=== PATIENT | female | born 1990 | race Caucasian/White ===

== ENCOUNTER 2019-09-20 04:35 | Outpatient (CLI) | payer OTHER, SELFPAY ==
[2019-09-20 11:05] LABS: Kit/Specimen SENT
[2019-09-20 11:25] LABS: Abs Immature Grans 0.01 k/cumm (0.0-0.09); Absolute Basophil Count 0.01 k/cumm (0.0-0.2); Absolute Eosinophil Count 0.07 k/cumm (0.0-0.7); Absolute Lymphocyte Count 2.11 k/cumm (1.2-3.4); Absolute Monocyte Count 0.42 k/cumm (0.11-0.7); Absolute Neutrophil Count 6.17 k/cumm (1.2-6.7); Basophils % 0.1; Eosinophils % 0.8; HCT 36.2 % (36.0-46.0); HGB 12.3 g/dL (12.0-15.5); Immature Grans % 0.1 %; Mean Corpuscular Volume 85.4 fL (80-95); Monocytes % 4.8; Neutrophils % 70.2; Platelet Count 274 x1000/uL (130-400); RBC 4.24 m/cumm (4.00-5.20); RBC Distribution Width 12.7 % (11.7-14.6); White Blood Cell Count 8.79 k/cumm (4.4-10.8)
[2019-09-20 11:34] LABS: Glucose,1 Hr (Glucola) 101 mg/dL (80-140)
[2019-09-20 12:42] LABS: TSH (W/Ref FT4) 1.19 uIU/mL (0.36-3.74)
[2019-09-21 11:09] LABS: Rubella IgG Ab (UVM) Positive (See Note); Varicella IgG Antibody Positive (See Note)
[2019-09-21 11:33] LABS: Hepatitis C Ab w Rflx HCV PCR Negative (Negative)
[2019-09-21 15:03] LABS: HIV-1/2 Ag & Ab Screen Negative (Negative)
[2019-09-21 15:04] LABS: Hepatitis B Surface Ag Negative (Negative)
[2019-09-22 11:33] LABS: Syphilis Total Ab w/Reflex Nonreactive (Nonreactive)
[2019-09-25 01:15] LABS: Specimen WB Whole Blood
[2019-09-26 17:59] LABS: Result Summary NEGATIVE; Specimen WB Whole Blood
== END 2019-09-20 04:55 ==
PROVIDERS: PCP Nurse Practitioner; Visit Provider Advanced Practice Midwife
DX: Z34.91 Encounter for supervision of normal pregnancy, unspecified, first trimester (principal); Z3A.15 15 weeks gestation of pregnancy; Z36.89 Encounter for other specified antenatal screening; Z82.79 Family history of other congenital malformations, deformations and chromosomal abnormalities
CPT/HCPCS: 36415; 81329; 82950; 86787; 86803; 86850; 86900; 86901; 87340; 87389; 81220; 84443; 85025; 86762; 86780

== ENCOUNTER 2019-09-20 10:30 | Outpatient (REF) | payer OTHER, SELFPAY ==
--- NOTE | 2019-09-20 10:00 | PAPFT_PTH ---
PATIENT: Chasidy Andrade LOC: [facility] U#:[id number] AGE/SX: 29/F ROOM: RE09/20/[address]: Elida Moody CNM : 1990 BED: DIS: 09/20/2019 SPEC #: [id number] RECD: 09/20/19 12:47 STATUS: CORDELL REQ #: [id number] DIA: 09/20/19 10:[address]: Elida Moody DEPT: [facility] Cytology RECD BY: Leilani Stearns ENTERED: 09/20/19 12:48 SP TYPE: PAPFT OTHR DR: Joselyn Araujo APRN Tissues: 1 - CX/ENDOCX FOR PAP SMEARS Procedures: PAP THIN PREP/UVM Screening HPV DNA PROBE Comments: [id number]
[2019-09-20 12:57] LABS: *AMPHETAMINES SCREEN URINE Negative (Negative); *BARBITURATES SCREEN URINE Negative (Negative); *BENZODIAZEPINES SCREEN URINE Negative (Negative); Cannabinoids THC Negative (Negative); Cocaine Screen,Urine Negative (Negative); METHADONE URINE SCREEN Negative (Negative); OPIATES URINE SCREEN Negative (Negative); Tricyclic Antidepressants Negative (Negative)
[2019-09-21 14:13] LABS: Chlamydia Result Negative (Negative); GC Result Negative (Negative)
[2019-09-26 12:28] LABS: Buprenorphine Negative; Norbuprenorphine Negative
== END 2019-09-20 10:50 ==
LOC: LBN 10:30
PROVIDERS: PCP Nurse Practitioner; Visit Provider Advanced Practice Midwife
DX: Z34.91 Encounter for supervision of normal pregnancy, unspecified, first trimester (principal); Z3A.15 15 weeks gestation of pregnancy; Z11.3 Encounter for screening for infections with a predominantly sexual mode of transmission; Z12.4 Encounter for screening for malignant neoplasm of cervix; Z11.51 Encounter for screening for human papillomavirus (HPV)
CPT/HCPCS: 80307; 87491; 87591; 88142; 87086; 87480; 87510; 87624; 87660

== ENCOUNTER 2019-10-11 00:21 | Outpatient (CLI) | payer OTHER, SELFPAY ==
--- NOTE | 2019-10-11 06:45 | DI.US_ITS ---
EXAM: US OB 2-3 TRIMESTER CLINICAL HISTORY: 18 wk anaotmy survey, Z3A.15. TECHNIQUE: Transabdominal obstetrical ultrasound performed. COMPARISON: No exams were available for comparison FINDINGS: Transabdominal obstetrical ultrasound performed. FINDINGS: Number of fetuses: One. position: Vertex. Placental grade: 1 Placental location: Posterior. No evidence of previa. BIOMETRIC DATA: BPD: 44 millimeters, 19+ 2 weeks HC: 166 millimeters, 19+ 2 weeks AC: 127 millimeters, 18+ 2 weeks FL: 27 millimeters, 18+ 1 weeks Cisterna Magna: 3.2 millimeters Cerebellum: 1.8 cm EFW: 235 grms 82 percentile Composite Age: 18+ 5 weeks EDC by US: 08 March 2020 Heart Rate: 171BPM Amniotic fluid: Amount of fluid is within normal limits. ANATOMICAL SURVEY: Four-chambered heart: Unremarkable. LVOT: Unremarkable. RVOT: Unremarkable. Left-sided stomach: Unremarkable. urinary bladder: Unremarkable. Bilateral kidneys: Unremarkable. Three-vessel cord: Unremarkable. Cord insertion: Unremarkable. Umbilical artery velocity: Unremarkable. Posterior fossa:Unremarkable. ventricles: Unremarkable. nose: Unremarkable. lips: Unremarkable. palate: Unremarkable. spine: Unremarkable. Two arms and two legs: Unremarkable. IMPRESSION: 1. Single live intrauterine gestation as above. 2. Normal anatomic survey. DATA REPOSITORY:
== END 2019-10-11 00:41 ==
PROVIDERS: Visit Provider Advanced Practice Midwife
DX: Z34.92 Encounter for supervision of normal pregnancy, unspecified, second trimester (principal); Z3A.18 18 weeks gestation of pregnancy
CPT/HCPCS: 76805

== ENCOUNTER 2019-12-07 04:03 | Outpatient (CLI) | payer OTHER, SELFPAY ==
--- NOTE | 2019-12-07 07:53 | DI.US_ITS ---
APPROVED REPORT EXAM: Comprehensive 2D, Doppler, and color-flow Echocardiogram Patient Location: Out-Patient Commissioned Police Officer: Iza Fong RDCS (AE) Indications: Murmur Other Information Study Quality: Good Conclusion Normal left ventricular wall thickness and chamber size. Estimated ejection fraction is 60%. There are no segmental wall motion abnormalities Normal right ventricular size and systolic function. Normal estimated right ventricular systolic pre ssure Normal left atrial size. Normal right atrial size. There are no structural valvular abnormalities or hemodynamically significant valvular abnormalities Wall motion Left Ventricle The left ventricle is normal size. The left ventricular systolic function is normal. The left ventric ular ejection fraction is within the normal range. There is normal left ventricular wall thickness. T here is normal LV segmental wall motion. There is no ventricular septal defect visualized. LVEF is 60 %. Right Ventricle The right ventricle is normal size. The right ventricular systolic function is normal. The RVSP is 23 .8 mmHg. Atria The left atrium size is normal. The right atrium size is normal. The interatrial septum is intact wit h no evidence for an atrial septal defect. Aortic Valve Aortic valve is trileaflet. There is no aortic valvular stenosis. No aortic regurgitation is present. Mitral Valve The mitral valve is normal in structure. No evidence of mitral valve stenosis. Trace mitral regurgita tion. Tricuspid Valve The tricuspid valve is normal in structure. There is no tricuspid valve stenosis. Trace tricuspid reg urgitation. Pulmonic Valve The pulmonary valve is normal in structure. There is no pulmonic valvular stenosis. Trace to mild pul alondra regurgitation. Great Vessels The aortic root is normal in size. The ascending aorta is normal in size. Aortic arch is normal in ca liber. IVC is normal in size and collapses >50% with inspiration. Pericardium There is no pericardial effusion. 2D Dimensions IVSD d PLAX 0.80 cm F: 0.6-1.0 LV Vol A2C d MOD 108.2 mL LVPW d PLAX 0.84 cm F: 0.6 - 1.0 LV Vol A4C d MOD 89.8 mL LVID d PLAX 5.33 cm F: 3.8 - 5.2 LA vol/ BSA A2C s A-L 29.5 mL/m2 LVDs 3.45 cm F: 2.2 - 3.5 LA vol/ BSA A4C s A-L 21.3 mL/m2 Ao Root d 2.66 cm F: 2.7 - 3.3 LA Vol/ BSA Biplane s A-L 26.0 mL/m2 RA Area A4C 13.23 cm2 LA Area A4C s MOD 16.32 cm2 RA Vol/ BSA A4C s A-L 15.8 mL/m2 LA Area A2C s MOD 19.91 cm2 Ao Asc Diam d 2.90 cm F: 2.3 - 3.1 LV EF A4C MOD 60.4 % LV EF Teichholz 63.0 % LV EF A2C MOD 58.0 % LVEF (Merchant's) 58.28 % F: 54 - 74 LV EF Biplane MOD 58.3 % LV Volume 74.81 mL F: 46 - 106 SV 58.08 mL LV Volume Index 37.59 mL/m2 F: 29 - 61 SV Index 29.12 mL/m2 LV Vol Biplane MOD 99.7 mL FS 34.40 % M-Mode TAPSE 2.54 cm (M/F) >1.7 LV Diastology MV E' medial 0.115 (>0.07 m/s) E/A Ratio 1.3 LV E/e MED 8.20 (<14) MV E Vmax 0.94 (0.4-1.3 m/s) MV E' lateral 0.166 (>0.1 m/s) MV A Vmax 0.70 (0.4-1.3 m/s) LV E/e LAT 5.65 (<14) MV E/A Ratio 1.32 MV E/E' medial 8.21 MV E/E' lateral 5.67 Aortic Valve LVOT Area 3.65 cm2 AoV Area Vmax 2.77 cm2 LVOT Vmax 1.14 m/s AoV Area/ BSA (Vmax) 1.39 cm2/m2 LVOT Mean Devon. 0.73 m/s ERNESTO Mean Devon. 2.52 cm2 LVOT Peak Grad 5.2 mmHg ERNESTO Mean Devon. Index 1.26 cm2/m2 LVOT Mean Grad 2.5 mmHg LVOT VTI 0.228 m LVOT Diam s 2.15 cm AoV Vmax 1.50 m/s Velocity Ratio 0.76 AoV Mean Devon. 1.05 m/s AoV Peak Grad 9.0 mmHg LVOT SV 83.04 mL AoV Mean Grad 4.9 mmHg AoV VTI 0.262 m AoV Area VTI 3.17 cm2 AoV Area/ BSA (VTI) 1.59 cm/m2 Mitral Valve MV DT 236 (160-240 msec) MV PHT 68 msec MV Area PHT 3.21 cm2 Pulmonary Valve PV Vmax 1.20 (0.5-1.5 m/s) RVOT Peak Gr. 3.66 mmHg PV Peak Grad 5.7 mmHg RVOT Mean Gr. 1.80 mmHg PV Mean Grad 3.1 mmHg RVOT VTI 0.190 m PV VTI 0.208 m RVOT Vmax 0.96 m/s Tricuspid Valve TR Peak Grad 20.8 mmHg TR Vmax 2.28 m/s RA Pressure 3.00 mmHg RVSP (TR) 23.8 mmHg
== END 2019-12-07 04:23 ==
PROVIDERS: Visit Provider Advanced Practice Midwife
DX: O26.92 Pregnancy related conditions, unspecified, second trimester (principal); R01.1 Cardiac murmur, unspecified
CPT/HCPCS: 93306

== ENCOUNTER 2019-12-13 03:08 | Outpatient (CLI) | payer OTHER, SELFPAY ==
[2019-12-13 11:18] LABS: HCT 33.6 % (36.0-46.0); HGB 10.8 g/dL (11.2-15.7); MCH 28.6 pg (27.0-33.0); MCHC 32.1 % (32.0-36.0); MCV 88.9 fL (80-95); MPV 10.2 fL (8.0-11.0); Platelet Count 322 10^3/uL (130-400); RBC 3.78 10^6/uL (3.93-5.22); RDW 12.9 % (11.7-14.6); RDW-SD 42.1 fL; WBC 12.18 10^3/uL (4.4-10.8)
[2019-12-13 11:23] LABS: Glucose,1 Hr (Glucola) 106 mg/dL (80-140)
== END 2019-12-13 03:28 ==
PROVIDERS: Visit Provider Advanced Practice Midwife
DX: Z34.90 Encounter for supervision of normal pregnancy, unspecified, unspecified trimester (principal)
CPT/HCPCS: 36415; 82950; 85027

== ENCOUNTER 2020-02-12 17:41 | Outpatient (REF) | payer OTHER, SELFPAY ==
[2020-02-12 17:57] LABS: *AMPHETAMINES SCREEN URINE Negative (Negative); *BARBITURATES SCREEN URINE Negative (Negative); *BENZODIAZEPINES SCREEN URINE Negative (Negative); Cannabinoids THC Negative (Negative); Cocaine Screen,Urine Negative (Negative); METHADONE URINE SCREEN Negative (Negative); OPIATES URINE SCREEN Negative (Negative)
[2020-02-12 18:04] LABS: Tricyclic Antidepressants Negative (Negative)
[2020-02-19 15:26] LABS: Buprenorphine Negative
== END 2020-02-12 18:01 ==
LOC: LBN 17:41
PROVIDERS: PCP Advanced Practice Midwife; Visit Provider Advanced Practice Midwife
DX: Z34.93 Encounter for supervision of normal pregnancy, unspecified, third trimester (principal); Z3A.36 36 weeks gestation of pregnancy; Z36.85 Encounter for antenatal screening for Streptococcus B
CPT/HCPCS: 80307; 87081

== ENCOUNTER 2020-03-10 14:35 | Outpatient (CLI) | payer OTHER, SELFPAY ==
[2020-03-10 15:02] VITALS: BP 132/87; PULSE 81; RESP 16; TEMP 36.4
[2020-03-10 15:05] VITALS: BP 132/87; PULSE 81; TEMP 36.4
[2020-03-10 16:07] VITALS: BP 131/81; PULSE 83
[2020-03-10 16:08] VITALS: BP 131/81; PULSE 83; TEMP 36.7
[2020-03-10 17:04] LABS: COMMENT (LAB VIEW ONLY) 24.28 mg/dL; PROTEIN < 6.0 mg/dL
--- NOTE | 2020-03-11 11:37 | W.OBNST ---
Date of service: 03/10/20 Time of Service: 18:30 NST Evaluation Reason for NST Reasons for Nonstress Test: GESTATIONAL HYPERTENSION Gestational Age Gestational Age in Weeks and Days: 40 Weeks and 2Days Test and Monitor Explained Test/Monitor Explained: Test Explained, Monitor Explained and Patient Verbalized Understanding Vital Signs Blood Pressure: 131/81 Pulse: 83 Temperature: 98.1 F NST Information Date on Monitor: 03/10/20 Time on Monitor: 14:50 Date off Monitor: 03/10/20 NST Interventions: PO Hydration and Other NST Evaluation Patient States Movement: Present Variability: Moderate 6-25 bpm Accelerations: 15x15 Decelerations: None NST Results: Reactive Note NST Note Note: B.P. 130s/80s during NST. neg edema or symptoms of preeclampsia. The fetus was very active and baseline FHTs difficult to assess so a prolonged monitor tracing was obtained. The baseline came down to 130s. Urine sample was sent for protein/creatinene ratio. Chasidy was instructed to return home and I told her I would call her with he serum results. After she left, the RN called me and told me that the blood was never drawn by the lab and she was under the impression that it had been drawn, having assumed her care after her arrival at the Center. I attempted to call the patient to discuss this and I left a message on voicemail. NST Reviewed and Verified by: Tea Perez
[2020-03-11 11:42] VITALS: BP 131/81; PULSE 83; TEMP 36.7
[2020-03-11 15:57] VITALS: BP 110/61; PULSE 107
== END 2020-03-10 17:05 | disposition home or self-care (01) ==
LOC: LBO 14:35 → OBS 14:48
PROVIDERS: PCP Advanced Practice Midwife; Visit Provider Advanced Practice Midwife
DX: O26.893 Other specified pregnancy related conditions, third trimester (principal)
CPT/HCPCS: 59025; 80053; 85027; 82565; 84156; 84550

== ENCOUNTER 2020-03-11 12:46 | Outpatient (CLI) | payer OTHER, SELFPAY ==
[2020-03-11 13:25] LABS: HCT 32.7 % (36.0-46.0); HGB 10.6 g/dL (11.2-15.7); MCH 27.7 pg (27.0-33.0); MCHC 32.4 % (32.0-36.0); MCV 85.6 fL (80-95); MPV 10.8 fL (8.0-11.0); Platelet Count 300 10^3/uL (130-400); RBC 3.82 10^6/uL (3.93-5.22); RDW 14.6 % (11.7-14.6); RDW-SD 45.7 fL; WBC 9.21 10^3/uL (4.4-10.8)
[2020-03-11 13:43] LABS: ALT 11 U/L (14-59); AST 10 U/L (15-37); Albumin 2.4 g/dL (3.4-5.0); Alkaline Phosphatase 179 U/L (46-116); Anion Gap 8.6 mmol/L (3-11); BUN 8 mg/dL (7-18); Bilirubin, Total 0.6 mg/dL (0.2-1.0); CO2 22.4 mmol/L (21.0-32.0); CREATININE 0.54 mg/dL (0.55-1.02); Calcium 8.8 mg/dL (8.5-10.1); Chloride 105 mmol/L (98-107); Glucose 101 mg/dL (74-106); Potassium 3.9 mmol/L (3.5-5.1); Sodium 136 mmol/L (136-145); Total Protein 6.5 g/dL (6.4-8.2); Uric Acid 2.8 mg/dL (2.6-6.0)
== END 2020-03-11 13:21 | disposition home or self-care (01) ==
LOC: BCD 12:47
PROVIDERS: PCP Advanced Practice Midwife; Visit Provider Advanced Practice Midwife
DX: O16.3 Unspecified maternal hypertension, third trimester (principal)
CPT/HCPCS: 36415; 80053; 85027; 84550

== ENCOUNTER 2020-03-12 15:47 | Inpatient (IN) | payer OTHER, SELFPAY ==
[2020-03-12 16:41] VITALS: BP 134/80; PULSE 92
[2020-03-12 16:42] VITALS: TEMP 36.8
--- NOTE | 2020-03-12 17:09 | W.PM.OBHPL1 ---
Date of service: 03/12/20 Time of Service: 17:09 Assessment and Plan Assessment and plan (1) Post-dates : Status: Acute Assessment and plan: A: 29 yo @ 40+4 wks by first trimester ultrasound dating PROM meconium stained fluid confirmed, since 1514 today Category 1 tracing, latent phase/prodomal, contrx mild q 5-7 minutes GBS neg, Rh+, Rubella & Varicella Immune Low risk for SD or PPH outside of primipara status Took daily low dose ASA for risk of PIH d/t nulliparity and elevated BMI Normotensive and afebrile on admit to P: Admit to , COVID swab, T&S and CBC, expectant management at this time Will recommend induction of labor if spontaneous onset does not occur Dr. Magaña available for consult prn Qualifiers: Post-term type: 40-42 weeks gestation Qualified Code(s): O48.0 - Post-term OB-HPI Labor/Delivery History of Present Illness Reason for Visit: TERM R/O LABOR Chief Complaint: Suspected Rupture of Membranes , Associated Signs and Symptoms of Suspected ROM: Pt bent down to pick and shovel man her cat at 1514 today when a large gush of yellow tinged fluid began flowing from her vagina. No bleeding, no pain, trickling has continued since.. YAHAIRA Calculator Estimated Delivery Date Method Current Current Estimate 03/08/20 Ultrasound #1 40w 4d Other Estimates 03/15/20 LMP (Uncertain) 39w 4d History of Present Expected Delivery Route/Plan - CNM FOB/fiance - Nikko Gardner (has another child) BB yes to hema Ortiz Interested in post-placental Kaila insertion GBS neg. Would like to use the tub and nitrous. Specific Issues/Plan 1. Hx of cardiac valve issues as a child. Referred for echocardiography by Dr. Alonzo 1a.11/15/19 pt states her ins. co, wants it done in [facility]. pt declines thus will do @ [facility]. al 1b. 12/07/19 Echo @ [facility] all wnl. Reviewed w/ Dr. Miller w/o need for f/u.al 2. Desires [place], CF and SMA testing, drawn 09/20/19 2a. SMA & CF carrier screen negative 2b. [place] result is low risk x3 male 3. Has sister with mild spina bifida, offer single marker AFP @ 18 wk visit - neg. result 4. Had +BV making PAP sample bloody, may need repeat PAP at 18 wk visit after Rx'ed Flagyl 5. BMI 32, early glucola 101 6. Start low dose ASA @ 16 wks for nullip/elevated BMI 7. Large breasts - planning to breastfeed, LC consult done 01/28 Review of Systems All systems reviewed & are unremarkable except as noted in HPI and below Constitutional Constitutional: Reports system reviewed and no additional complaints, except as documented Respiratory Respiratory: Reports system reviewed and no additional complaints, except as documented Gastrointestinal Gastrointestinal: Reports system reviewed and no additional complaints, except as documented Genitourinary Genitourinary: Reports system reviewed and no additional complaints, except as documented Musculoskeletal Musculoskeletal: Reports system reviewed and no additional complaints, except as documented Integumentary/Breasts Skin/Breast: Reports system reviewed and no additional complaints, except as documented Psychiatric Psychiatric: Reports as per HPI [facility] Medical History (Updated 03/12/20 @ 17:17 by Brigid Moody) 15 weeks gestation of 36 weeks gestation of Abnormality of heart valve Amenorrhea Migraines Family History Maternal Grandmother Heart disease Father Hypertension Other Alcohol abuse Social History (Updated 08/30/19 @ 09:02 by Sharmin Lewis) Smoking/Tobacco Use Status: Former Tobacco Use Quit Date: 04/04/15 Tobacco: How many years used: 1 Smoking risk assessment performed?: Yes Alcohol Intake: former Drug use: Never Substance use type: does not use Adopted: No Caregiver/Support person: No Foster care: No Household members: spouse Housing: house Do you need help understanding health information?: Rarely current occupation: [employer] Sexually active: Yes Do you think of yourself as: straight/heterosexual Current gender identity: female Do you feel safe at home: Yes Do you feel safe in your relationship?: Yes Female Reproductive History Menstrual control method: pills History History 2 Para 0 Hx # Term Pregnancies 0 Multiple births 0 Hx # Pregnancies 0 Ectopic pregnancies 0 AB induced 1 Hx Number of Living Children 0 AB spontaneous 0 Meds Home Medications and Allergies Home Medications Medication Instructions Recorded Confirmed Type PNV 153-FA 400 mcg-om3 35 mg-dha 1 tab PO 08/21/19 03/05/20 History 25 mg-epa 5 mg-fish oil chew tablet aspirin 81 mg tablet,delayed 81 mg PO DAILY #90 tab 09/20/19 03/12/20 Rx release ferrous sulfate 325 mg (65 mg 325 mg PO DAILY #30 tab 12/31/19 03/12/20 Rx iron) tablet breast pump #1 ea 02/21/20 03/05/20 Rx Allergies Allergy/AdvReac Type Severity Reaction Status Date / Time cephalexin AdvReac Nausea Verified 03/10/20 14:21 Exam Physical Exam Vital signs: Temp 98.2 F 03/12/20 16:42 Vital Signs Reviewed: Yes Constitutional Constitutional: no acute distress, average body habitus and cooperative Detailed Labor and Delivery Exam Nolen Score: Cervical exam deferred on admission Amniotic Membrane Status: Ruptured Rupture Method: Spontaneous Amniotic Fluid: Meconium Pooling: Positive Nitrazine: Positive Ferning: Present Monitor Mode: External Contraction Frequency(min): q 5-7 minutes Contraction Duration(sec): 60-90 Contraction Intensity: Mild Fetus A Heart Rate Baseline: 140 Monitor Accelerations: 15 X 15 Monitor Decelerations: None Variability: Moderate (6-25 BPM) Presentation: Cephalic Categories: Category I Est. Weight: 7 lb 7.931 oz Est. Weight: 3400 gms Date of Membrane Rupture: 03/12/20 Time of Membrane Rupture: 15:15 Results Results Group Beta Strep: Negative Blood Type: A+ Rubella Status: Immune Varicella Immunity: Immune Risk Assessment Risk for Shoulder Dystocia Historical/Initial OB: POSITIVE FOR: Pre- BMI>30; NEGATIVE FOR: Pelvic Abnormality, Previous Shoulder Dystocia or Previous Macrosomia 40 Weeks: NEGATIVE FOR: EFW> 4500 gms, Maternal Weight Gain >40lb or Post Dates Increased Risk?: No Delivery Plan @ 36wks: spont labor, , no increased risk outside of primiparous status Delivery Plan @ 40 wks: same Risk for Pre-Eclampsia Daily Dose ASA Indicated: Yes Date Initiated/Initials: 09/20/19 JK Yes, if one or more: NEGATIVE FOR: Hx Pre-E/Gest HTN, Chronic HTN, Multiple Gestation, Pre-gestational DM, Renal Disease, Systemic Lupus or APA Syndrome Yes, if 2 or more: POSITIVE FOR: Nulliparity and BMI>30; NEGATIVE FOR: Age>= 35 yrs, >10yr btwn pregnancies, ethinicty, Mother/Sister w/ Pre-E or Previous IUGR Risk for Post- Hemorrhage Initial: NEGATIVE FOR: Multiple Gestation, Previous PPH, Known Clotting Deficiency, Grand Multiparity or Anticoagulation At Risk?: No Risks Reviewed Risks Reviewed Upon Admission: Yes
[2020-03-12 17:25] LABS: HCT 33.2 % (36.0-46.0); HGB 10.8 g/dL (11.2-15.7); MCH 27.7 pg (27.0-33.0); MCHC 32.5 % (32.0-36.0); MCV 85.1 fL (80-95); MPV 10.7 fL (8.0-11.0); Platelet Count 310 10^3/uL (130-400); RDW 14.6 % (11.7-14.6); RDW-SD 45.7 fL; WBC 11.63 10^3/uL (4.4-10.8)
[2020-03-12 21:53] VITALS: BP 117/63; PULSE 80
[2020-03-12 22:00] VITALS: TEMP 36.6
[2020-03-13] VITALS (66 sets, daily range): BP systolic 101–138; BP diastolic 54–85; PULSE 72–115; RESP 18–22; TEMP 36.4–36.9; O2SAT 94–99
--- NOTE | 2020-03-13 06:35 | W.PM.OBNL1 ---
Date of service: 03/13/20 Time of Service: 06:35 Informed Consent Informed Consent: Induction of Labor and Risk,Benefits,Alternatives Discussed Pelvic Exam Dilation: 2 Effacement (%): 80 station: -3 Cervix Position: posterior Consistency: medium BISHOPS Score(Cervical Ripeness Score): 5 Vaginal Exam Presentation: Cephalic Contractions Monitor Mode: External Contraction Frequency(min): iregular, q 4-7 minutes Intensity: Mild Fetus A Monitor: External (US) Heart Rate Baseline: 135 Presentation: Cephalic Variability: Moderate (6-25 BPM) Categories: Category I FHR Rhythm: Regular Characteristics: Normal Accelerations: 15 X 15 Decelerations: None Amniotic Membrane Status: Ruptured Assessment and Plan Assessment and plan (1) PROM with onset of labor more than 24 hours following rupture: Status: Acute Assessment and plan: A: Primipara, PROM @ 16 hrs, light meconium GBS Neg, not in labor, EFW adjusted from admission note to 3800 gms by abd palp Mild anemia of with hgb @ 10.8 on admit P: Will begin misoprostel IOL protocol Discussed with pt R&B of misoprostel and pitocin Comfort measures options for labor reviewed including regional anesthesia Dr.'s Magaña and Paul available for consultation prn Qualifiers: PROM gestational age: full term Qualified Code(s): O42.12 - Full-term premature rupture of membranes, onset of labor more than 24 hours following rupture Objective Abnormal lab results 03/12/20 Range/Units 17:15 WBC 11.63 H (4.4-10.8) 10^3/uL RBC 3.90 L (3.93-5.22) 10^6/uL Hgb 10.8 L (11.2-15.7) g/dL Hct 33.2 L (36.0-46.0) % Temp Pulse Resp BP 98.2 F 89 20 124/73 03/13/20 05:40 03/13/20 05:41 03/13/20 01:06 03/13/20 05:41 Laboratory Results WBC 11.63 10^3/uL (4.4-10.8) H 03/12/20 17:15 RBC 3.90 10^6/uL (3.93-5.22) L 03/12/20 17:15 Hgb 10.8 g/dL (11.2-15.7) L 03/12/20 17:15 Hct 33.2 % (36.0-46.0) L 03/12/20 17:15 MCV 85.1 fL (80-95) 03/12/20 17:15 MCH 27.7 pg (27.0-33.0) 03/12/20 17:15 MCHC 32.5 % (32.0-36.0) 03/12/20 17:15 RDW 14.6 % (11.7-14.6) 03/12/20 17:15 Plt Count 310 10^3/uL (130-400) 03/12/20 17:15 MPV 10.7 fL (8.0-11.0) 03/12/20 17:15 Patient ABO/Rh A Positive 03/12/20 17:15 Antibody Screen Negative 03/12/20 17:15 Vital Signs Reviewed: Yes Objective Narrative Objective Narrative: Pt rested the night, tired but calm and relaxed this morning R&B reviewed regarding PROM at 16 hrs without active labor, Methods of induction discussed and R&B reviewed Category 1 tracing, normotensive, afebrile Admission hgb/hct noted at 10.8/33.2 Tolerating PO intake well COVID swab pending Subjective Patient Reports: No new Complaints Interval history since last seen: Pt rested through the night, slept fitfully, contractions were strengthening at midnight then seemed to decrease, they continue to come and go and feel like cramps. Saw pink tinge to vaginal mucous earlier this morning. Interventions Induction Indication: Premature Rupture of Membranes , Type of Induction: Misoprostol administration: Oral , Induction Note: PROM x16 hrs at term, an score 5, EFW 3800 gms, pelvis adequate in a primipara, station cephalic @ -3 . Procedure Procedures: Cervical Ripening Cervical Ripening: Misoprostol
[2020-03-13] MEDS: miSOPROStol 25 MCG TAB 50 MCG PO (06:46)
--- NOTE | 2020-03-13 11:46 | W.PM.OBNL1 ---
Date of service: 03/13/20 Time of Service: 11:46 Pelvic Exam Dilation: 4 Effacement (%): 90 station: -3 Cervix Position: mid Consistency: soft Vaginal Exam Presentation: Cephalic Fetus A Monitor: External (US) Heart Rate Baseline: 140 Presentation: Cephalic Variability: Moderate (6-25 BPM) Categories: Category I FHR Rhythm: Regular Characteristics: Normal Accelerations: 15 X 15 Decelerations: None and Variable (isolated variable noted x1, nonrecurrent) Amniotic Membrane Status: Ruptured Assessment Note: Will change to intermittent auscultation Assessment and Plan Assessment and plan (1) Post-dates : Status: Acute Assessment and plan: A: Active labor onset 4 hours after 1 dose of misoprostel 50 mcg PO P: Intermittent auscultation', encourage maternal movement Comfort measures as needed/requested Pt desires narcotic analgesia, declines regional anesthesia Anticipate Qualifiers: Post-term type: 40-42 weeks gestation Qualified Code(s): O48.0 - Post-term Objective Vital Signs Reviewed: Yes Objective Narrative Objective Narrative: Overall category 1 tracing, contractions every 2-4 minutes Pt coping well but clearly uncomfortable Tolerating PO fluid intake without emesis Subjective Interval history since last seen: Contractions are frequent and painful, nitrous oxide inhalant not very helpful, requesting narcotic analgesia Results Hemoglobin/Hematocrit: Hgb 10.8 g/dL (11.2-15.7) L 03/12/20 17:15 Hct 33.2 % (36.0-46.0) L 03/12/20 17:15 Abnormal Lab Findings: Abnormal Labs 03/12/20 17:15 WBC 11.63 H RBC 3.90 L Hgb 10.8 L Hct 33.2 L
[2020-03-13] MEDS: Nalbuphine 10 MG/ML AMP SC ×2 (12:00→15:48)
--- NOTE | 2020-03-13 14:45 | W.PM.OBNL1 ---
Date of service: 03/13/20 Time of Service: 14:45 Pelvic Exam Dilation: 5.5 Effacement (%): 95 station: -2 Cervix Position: mid Consistency: soft Vaginal Exam Presentation: Cephalic Contractions Monitor Mode: External Contraction Frequency(min): q 2-3 minutes Intensity: Moderate/Strong Fetus A Monitor: Doppler Heart Rate Baseline: 135 Presentation: Cephalic FHR Rhythm: Regular Characteristics: Normal Assessment Note: pt receiving narcotic analgesia Assessment and Plan Assessment and plan (1) Post-dates : Status: Acute Assessment and plan: A: G1 PROM x 23 hrs, active labor, slowly progressing Reassuring status, tolerating PO fluid intake Pt using narcotic analgesia, declines regional anesthesia P: Will give 2nd dose of Nubain SC Discussed with pt and FOB risks and benefits of pitocin augmentation Will reassess for progress in 2-3 hrs Consider indication for augmentation and assess need for effective pain management Dr. Miller aware of pt status and available for consult prn Qualifiers: Post-term type: 40-42 weeks gestation Qualified Code(s): O48.0 - Post-term Objective Vital Signs Reviewed: Yes Objective Narrative Objective Narrative: Intermittent auscultation while in tub has been reassuring, FHT per EFM for 10 minutes are without decel and nml baseline Decreased variability presumably d/t Nubain admin Normotensive and afebrile SVE shows progress to 5-6/95% and vtx descending to -2 Subjective Interval history since last seen: Labored in the tub for 2 hrs with nitrous use after nubain 10 mg SC given, contractions have continued q 2-3 minutes, pt coping well. Ambulated to BR and then resting in bed to cool off, requesting 2nd dose of Nubain. Results Hemoglobin/Hematocrit: Hgb 10.8 g/dL (11.2-15.7) L 03/12/20 17:15 Hct 33.2 % (36.0-46.0) L 03/12/20 17:15 Abnormal Lab Findings: Abnormal Labs 03/12/20 17:15 WBC 11.63 H RBC 3.90 L Hgb 10.8 L Hct 33.2 L
--- NOTE | 2020-03-13 18:10 | PGE_ITS ---
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 Consents to pitocin augmentation. Interventions Pain Management Interventions: Epidural Epidural Placed by:: Bernardo Chan ./ Augmentation , Pitocin rate (mU/min): 2 Results Abnormal Lab Findings:
[2020-03-13] MEDS: Lactated Ringers 1,000 ML 500 ML IV ×2 (18:50→20:06)
[2020-03-13] MEDS: Normal Saline Flush 10 ML SYR IVP (18:50)
[2020-03-13] MEDS: fentaNYL 100 MCG/2 ML VIAL (20:02)
[2020-03-13] MEDS: Oxytocin/Normal Saline 30 UNIT/500 ML BAG 2 UNITS IV (20:05)
[2020-03-14] VITALS (36 sets, daily range): BP systolic 100–149; BP diastolic 56–127; PULSE 76–180; RESP 16–21; TEMP 36.6–37.5; O2SAT 92–100
--- NOTE | 2020-03-14 00:32 | W.PM.OBNL1 ---
Date of service: 03/14/20 Time of Service: 00:33 Pelvic Exam Dilation: 8 Effacement (%): 100 station: 0 Cervix Position: anterior Consistency: soft Vaginal Exam Presentation: Cephalic Contractions Monitor Mode: External Contraction Frequency(min): q 2-4 minutes Intensity: Moderate/Strong Fetus A Monitor: External (US) Heart Rate Baseline: 125 Presentation: Cephalic Variability: Moderate (6-25 BPM) Categories: Category I FHR Rhythm: Regular Characteristics: Normal Accelerations: Present Decelerations: None Amniotic Membrane Status: Ruptured Assessment and Plan Assessment and plan (1) Prolonged labor with first : Status: Acute (2) PROM with onset of labor more than 24 hours following rupture: Status: Acute Assessment and plan: A: pitocin augmentation after epidural anesthesia effective pain relief, descent and progress noted P: Continue current plan with rest under epidural Continue pitocin augmentation protocol Qualifiers: PROM gestational age: full term Qualified Code(s): O42.12 - Full-term premature rupture of membranes, onset of labor more than 24 hours following rupture Objective Vital Signs Reviewed: Yes Objective Narrative Objective Narrative: Good relief from pain noted shortly after epidural placed Pt able to fall asleep after repositioning and encouragement to rest Awakened at 0015 for straight cath for 500 ml concentrated urine and cvx exam Good descent noted @ 8/100%, vtx 0 station Category 1 tracing, pitocin at 14 mu/min Subjective Interval history since last seen: Good relief from epidural since 2029, has been sleeping
--- NOTE | 2020-03-14 03:09 | W.PM.OBNL1 ---
Date of service: 03/14/20 Time of Service: 03:09 Pelvic Exam Dilation: 9 station: +1 Position: ROP Contractions Monitor Mode: External Contraction Frequency(min): q 2-4 minutes Intensity: Moderate/Strong Fetus A Monitor: External (US) Heart Rate Baseline: 135 Presentation: Cephalic Variability: Moderate (6-25 BPM) Categories: Category I FHR Rhythm: Regular Characteristics: Normal Accelerations: Present Decelerations: None Assessment Note: periods of minimal variability interspersed with periods of moderate variability Assessment and Plan Assessment and plan (1) Prolonged labor with first : Status: Acute Assessment and plan: A: OP labor, @ 9 cm and descent to +1, pit aug, epidural, category 1 tracing overall P: to LLP to encourage rotation await further descent, anticipate Objective Vital Signs Reviewed: Yes Objective Narrative Objective Narrative: Pt dozing but can feel increased pelvic pressure with contractions Has begun using nitrous during contractions Overall category 1 tracing, pitocin at 16 mu/min Afebrile, normotensive SVE 9 cm, +1 station, anterior fontenelle nearly directly behind pubic arch, ROP Subjective Interval history since last seen: Increasing sensation of pelvic pressure, overall remains comfortable Results Abnormal Lab Findings:
--- NOTE | 2020-03-14 05:01 | W.PM.OBNL1 ---
Date of service: 03/14/20 Time of Service: 05:04 Assessment and Plan Assessment and plan (1) Prolonged labor with first : Status: Acute (2) PROM with onset of labor more than 24 hours following rupture: Status: Acute Assessment and plan: Pt has been sleeping while in LLP Category 1 tracing, pitocin @ 16 mu/min Prolonged OP labor with slow but steady progress Effective epidural, pit aug, PROM >24 hrs A: Therapeutic rest prior to second stage Will commence pushing efforts when pt wakes Anticipate Qualifiers: PROM gestational age: full term Qualified Code(s): O42.12 - Full-term premature rupture of membranes, onset of labor more than 24 hours following rupture Subjective Patient Reports: No new Complaints Interval history since last seen: sleeping Results Abnormal Lab Findings:
[2020-03-14] MEDS: Lactated Ringers 250 ML 500 ML IV (07:54)
[2020-03-14] MEDS: Lactated Ringers 1,000 ML 500 ML IV (09:06)
--- NOTE | 2020-03-14 11:02 | W.PM.OBNL1 ---
Date of service: 03/14/20 Time of Service: 11:00 Informed Consent Informed Consent: Regional Anesthesia and Risk,Benefits,Alternatives Discussed Assessment and Plan Assessment and plan (1) Prolonged labor with first : Status: Acute Assessment and plan: Dr. Miller came to the room at 1100 and assessed Chasidy's status and felt that the baby was not low enough for vacuum extraction. I presented the option of continuing to push for another hour. Chasidy prefers to have a at this time and I will discuss this with Dr. Miller. Chasidy requested the pitocin to be turned off and that was done. Objective Temp Pulse Resp BP Pulse Ox 99.0 F 89 18 103/56 L 97 03/14/20 09:24 03/14/20 10:58 03/14/20 08:33 03/14/20 09:24 03/14/20 10:58 Laboratory Results WBC 11.63 10^3/uL (4.4-10.8) H 03/12/20 17:15 RBC 3.90 10^6/uL (3.93-5.22) L 03/12/20 17:15 Hgb 10.8 g/dL (11.2-15.7) L 03/12/20 17:15 Hct 33.2 % (36.0-46.0) L 03/12/20 17:15 MCV 85.1 fL (80-95) 03/12/20 17:15 MCH 27.7 pg (27.0-33.0) 03/12/20 17:15 MCHC 32.5 % (32.0-36.0) 03/12/20 17:15 RDW 14.6 % (11.7-14.6) 03/12/20 17:15 Plt Count 310 10^3/uL (130-400) 03/12/20 17:15 MPV 10.7 fL (8.0-11.0) 03/12/20 17:15 Patient ABO/Rh A Positive 03/12/20 17:15 Antibody Screen Negative 03/12/20 17:15 Subjective Patient Reports: No new Complaints Interval history since last seen: Chasidy has been pushing since 0600. I assumed her care at 0800. I examined her at 0830 while pushing and a thick anterior rim of cervix was noted. Her position was changed to semi-folers and she pushed well and the rim was reduced easily. She has continued pushing in various positions including squatting and hands and knees. FHTs remain 140s and category 1. I consulted with Olivia Beverly at 0945 and informed her of her status. Results Hemoglobin/Hematocrit: Hgb 10.8 g/dL (11.2-15.7) L 03/12/20 17:15 Hct 33.2 % (36.0-46.0) L 03/12/20 17:15 Abnormal Lab Findings: Abnormal Labs 03/12/20 17:15 WBC 11.63 H RBC 3.90 L Hgb 10.8 L Hct 33.2 L
--- NOTE | 2020-03-14 11:52 | W.PM.OBNL1 ---
Date of service: 03/14/20 Time of Service: 11:52 Informed Consent Informed Consent: Regional Anesthesia and Risk,Benefits,Alternatives Discussed Assessment and Plan Assessment and plan (1) Prolonged labor with first : Status: Acute Objective Temp Pulse Resp BP Pulse Ox 99.0 F 97 H 18 136/88 97 03/14/20 09:24 03/14/20 11:03 03/14/20 11:02 03/14/20 11:02 03/14/20 11:03 Laboratory Results WBC 11.63 10^3/uL (4.4-10.8) H 03/12/20 17:15 RBC 3.90 10^6/uL (3.93-5.22) L 03/12/20 17:15 Hgb 10.8 g/dL (11.2-15.7) L 03/12/20 17:15 Hct 33.2 % (36.0-46.0) L 03/12/20 17:15 MCV 85.1 fL (80-95) 03/12/20 17:15 MCH 27.7 pg (27.0-33.0) 03/12/20 17:15 MCHC 32.5 % (32.0-36.0) 03/12/20 17:15 RDW 14.6 % (11.7-14.6) 03/12/20 17:15 Plt Count 310 10^3/uL (130-400) 03/12/20 17:15 MPV 10.7 fL (8.0-11.0) 03/12/20 17:15 Patient ABO/Rh A Positive 03/12/20 17:15 Antibody Screen Negative 03/12/20 17:15 Subjective Patient Reports: New Complaints (Patient reports exhaustion desire delivery) Interval history since last seen: I was called to discuss with the patient. She has been pushing with contractions for several hours and has had minimal descent of the vertex. heart rate tracing has been reassuring. Category 1. The vaginal exam performed Approximately Half Hour Ago Shows and +2 station which is essentially unchanged from previous exam performed at 0700 hrs. I spoke to the patient regarding the risks of the procedure including risk of infection damage to surrounding structures including bowel bladder and blood vessels. She has agreed to the delivery and signed informed consent her questions were answered. Interventions Other (Patient has consented to delivery OR has been notified) Results Hemoglobin/Hematocrit: Hgb 10.8 g/dL (11.2-15.7) L 03/12/20 17:15 Hct 33.2 % (36.0-46.0) L 03/12/20 17:15 Abnormal Lab Findings: Abnormal Labs 03/12/20 17:15 WBC 11.63 H RBC 3.90 L Hgb 10.8 L Hct 33.2 L
[2020-03-14] MEDS: Lactated Ringers 1,000 ML 200 ML IV (12:00)
[2020-03-14] MEDS: ceFAZolin 2 GM/50 ML BAG IVPB (12:01)
[2020-03-14] MEDS: AZITHROMYCIN 500 MG in Normal Saline 250 ML 250 MG IVPB ×2 (12:02→12:03)
[2020-03-14] MEDS: Sodium Citrate 30 ML CUP PO (12:04)
--- NOTE | 2020-03-14 14:25 | W.PM.OBNL1 ---
Date of service: 03/14/20 Time of Service: 11:00 Informed Consent Informed Consent: Regional Anesthesia and Risk,Benefits,Alternatives Discussed Assessment and Plan Assessment and plan (1) Prolonged labor with first : Status: Acute (2) PROM with onset of labor more than 24 hours following rupture: Status: Acute Qualifiers: PROM gestational age: full term Qualified Code(s): O42.12 - Full-term premature rupture of membranes, onset of labor more than 24 hours following rupture (3) Failure to progress in second stage of labor: Status: Acute Objective Temp Pulse Resp BP Pulse Ox 99.0 F 97 H 18 136/88 97 03/14/20 09:24 03/14/20 11:03 03/14/20 11:02 03/14/20 11:02 03/14/20 11:03 Laboratory Results WBC 11.63 10^3/uL (4.4-10.8) H 03/12/20 17:15 RBC 3.90 10^6/uL (3.93-5.22) L 03/12/20 17:15 Hgb 10.8 g/dL (11.2-15.7) L 03/12/20 17:15 Hct 33.2 % (36.0-46.0) L 03/12/20 17:15 MCV 85.1 fL (80-95) 03/12/20 17:15 MCH 27.7 pg (27.0-33.0) 03/12/20 17:15 MCHC 32.5 % (32.0-36.0) 03/12/20 17:15 RDW 14.6 % (11.7-14.6) 03/12/20 17:15 Plt Count 310 10^3/uL (130-400) 03/12/20 17:15 MPV 10.7 fL (8.0-11.0) 03/12/20 17:15 Patient ABO/Rh A Positive 03/12/20 17:15 Antibody Screen Negative 03/12/20 17:15 Subjective Interval history since last seen: Chasidy strongly desires a due to fatigue. The pitocin was discontinued pending discussion with Dr. Miller. Dr. Miller spoke with Chasidy regarding a section for failure to progress. Results Hemoglobin/Hematocrit: Hgb 10.8 g/dL (11.2-15.7) L 03/12/20 17:15 Hct 33.2 % (36.0-46.0) L 03/12/20 17:15 Abnormal Lab Findings: Abnormal Labs 03/12/20 17:15 WBC 11.63 H RBC 3.90 L Hgb 10.8 L Hct 33.2 L
--- NOTE | 2020-03-14 15:06 | PDOC.ANES ---
Date of service: 03/14/20 Time of Service: 15:06 Anesthesia Note Report Anesthesia Note: Requested by OB staff to evaluate pt for pain. Pt found in bed stating pain is very high that she does not want to move. Discussed option to restart epidural and leave on overnight. Pt agrees with the plan. A 5 mL bolus was given via the pump with good results. Bolus was tolerated without issue, BP remained stable. Pump was restarted at 10 mL//hr.
[2020-03-14] MEDS: FentaNYL/ROPIvacaine 2 mcg/ml and 0.1% 200 ML CADD Cassette EP ×2 (15:45→16:56)
[2020-03-14] MEDS: Lactated Ringers 1,000 ML 120 ML IV ×3 (17:57→21:43)
[2020-03-14] MEDS: Normal Saline Flush 10 ML SYR IVP (18:00)
[2020-03-14] MEDS: Ketorolac 30 MG/ML VIAL IVP (21:24)
[2020-03-14 22:47] LABS: COVID-19 RT-PCR Result NEGATIVE (Negative)
--- NOTE | 2020-03-14 23:15 | NUR.NOTE ---
charting done from [id number] documented by Candelaria Meeks Note:
[2020-03-15] VITALS (7 sets, daily range): BP systolic 94–117; BP diastolic 54–75; PULSE 90–98; RESP 16; TEMP 36.7–36.9; O2SAT 96–99
[2020-03-15] MEDS: Ketorolac 30 MG/ML VIAL IVP ×2 (03:15→09:33)
[2020-03-15] MEDS: Lactated Ringers 1,000 ML 120 ML IV (05:25)
[2020-03-15 09:34] LABS: Abs Immature Grans 0.07 10^3/uL (0.0-0.06); Absolute Eosinophil Count 0.11 10^3/uL (0.0-0.7); Absolute Neutrophil Count 12.24 10^3/uL (1.2-6.7); Basophils % 0.2; Eosinophils % 0.7; HCT 26.7 % (36.0-46.0); HGB 8.8 g/dL (11.2-15.7); Immature Grans % 0.4; Lymphocytes % 15.5; MPV 10.7 fL (8.0-11.0); Monocytes % 7.3; Neutrophils % 75.9; Nucleated RBC 0 %; Platelet Count 274 10^3/uL (130-400); RBC 3.14 10^6/uL (3.93-5.22); RDW 15.4 % (11.7-14.6); WBC 16.13 10^3/uL (4.4-10.8)
[2020-03-15 09:35] LABS: Absolute Basophil Count 0.03 10^3/uL (0.0-0.2); Absolute Monocyte Count 1.18 10^3/uL (0.1-0.8)
--- NOTE | 2020-03-15 14:17 | W.PM.OBPNV1 ---
Date of service: 03/15/20 Time of Service: 10:08 Assessment and Plan Assessment and plan (1) delivery delivered: Status: Acute Assessment and plan: POD #1 s/p primary low transverse section for arrest of descent. -post operative recovery going well, pain well controlled -labs wnl as noted above -observe and manage pain today -consider discharge per patient request tomorrow only if doing well -breast feeding - assit with flattened nipples Subjective Subjective Interval history: Interval history: Pt has just left the shower and had her epidural removed at 9am. She has had her bae removed and has voided. She is ambulating without difficulty. She has had 4 doses of toradol and is overall doing very well. She would like to go home today. Patient comments: No complaints, Pain well controlled and Tolerating diet [place] feeding status: Exclusively breast feeding Exam Physical Exam Vital signs: Temp Pulse Resp BP Pulse Ox 98.4 F 90 16 106/62 99 03/15/20 08:00 03/15/20 08:00 03/15/20 08:00 03/15/20 08:00 03/15/20 08:00 Additional findings Additional findings: Additional findings Additional findings: Gen: Alert and Oriented x 3 CV: RRR L: CTAB A: Soft, appropriately tender, no rebound, no guarding, +BS F: Firm and 1 below the umbilicus, appropriately tender Inc: clean, dry and intact, glue over incision Ext: 2 + edema Results Hemoglobin/Hematocrit: Hgb 8.8 g/dL (11.2-15.7) L 03/15/20 09:20 Hct 26.7 % (36.0-46.0) L 03/15/20 09:20 Abnormal Lab Findings: Abnormal Labs 03/12/20 03/15/20 17:15 09:20 WBC 11.63 H 16.13 H RBC 3.90 L 3.14 L Hgb 10.8 L 8.8 L Hct 33.2 L 26.7 L RDW 15.4 H Absolute Neutrophils 12.24 H Absolute Monocytes 1.18 H
[2020-03-15] MEDS: Ibuprofen 600 MG TAB PO ×2 (14:57→20:17)
--- NOTE | 2020-03-15 20:26 | NUR.NOTE ---
Nursing Note: Chasidy is upset that she did not get to go home today. The bed and chairs are uncomfortable for her and really wants to be in her own home. Assured her that we will do our best to get her discharged as early as possible tomorrow. The likely hold up will be waiting for baby to be circumcised in the morning.
--- NOTE | 2020-03-15 22:21 | NUR.NOTE ---
Nursing Note: Pt's mood much improved from earlier note, was able to nap on price bed while dad held baby. Still wants discharge nereida in the morning.
[2020-03-16 00:16] VITALS: BP 106/51; PULSE 84; RESP 16
[2020-03-16] MEDS: Ibuprofen 600 MG TAB PO (06:55)
[2020-03-16] MEDS: Acetaminophen 325 MG TAB 650 MG PO (10:18)
--- NOTE | 2020-03-16 10:30 | DSE_ITS ---
Date of service: 03/16/20 Time of Service: 10:30 DS: Diagnosis Discharge Diagnosis (1) delivery delivered: Status: Acute Asessment and Plan: Pt is doing well, plan for discharge today per patient request. Patient not taking narcotics using Tylenol and Motrin for pain. Wound precautions given and follow-up discussed. No medications given for discharge. Discharge Plan Discharge Details Reason For Visit: TERM R/O LABOR Admit Date/Time: 03/12/20 16:58 Admit Provider: Tea Perez Attending Provider: Tea Perez Primary Care Provider: Brigid Moody Hospital Course Hospital Course: Pt admitted for labor and underwent a primary delivery for arrest of descent. She progressed in a normal post operative and post course. She desired discharge home on PPD#2. Wound and follow-up precautions discussed at length. Home Meds and New Rx's Prescriptions: Continued ferrous sulfate 325 mg (65 mg iron) tablet 325 mg PO DAILY Qty: 30 RF: 1 Gummies 400 mcg-35 mg- 25 mg-5 mg tablet,chewable 1 tab PO DAILY RF: 0 (DME) breast pump Device See Rx Instructions .ROUTE .MEDSUPPLY Qty: 1 RF: 0 Discontinued aspirin 81 mg tablet,delayed release (DR/EC) 81 mg PO DAILY Qty: 90 RF: 3 Discharge Instructions Activity:: Activity as Tolerated Activity:: Activity as Tolerated Equipment/Supplies:: No Equipment Needed Diet:: As Tolerated OB:DS Summary Summary Laceration Description: Uterine Laceration Extension: N/A Contraception Discussed Contraception Discussed: No, Gender-Baby A: Male Status at Discharge Functional status at discharge: independent ambulation Overall status at discharge: patient is progressing back to baseline Mental Status: mental status grossly normal Speech and Movement: speech and movement normal Mood: congruent mood Affect: normal affect Exam Physical Exam Vital signs: Temp Pulse Resp BP Pulse Ox 98.1 F 84 16 106/51 L 99 03/15/20 20:26 03/16/20 00:16 03/16/20 00:16 03/16/20 00:16 03/15/20 20:26 Vital Signs Reviewed: Yes Narrative: Pt doing well with no complaints, strongly desires discharge home today. Ambulating without difficultly and tolerating a regular diet. Additional findings Additional findings: Gen: Alert and Oriented x 3 CV: RRR L: CTAB A: Soft, appropriately tender , no rebound, no guarding, +BS F: Firm and 2 below the umbilicus, appropriately tender Inc: clean, dry and intact Ext: 3 + edema in feet PFSH Medical History (Updated 03/15/20 @ 14:19 by Ashlie David MD) 15 weeks gestation of 36 weeks gestation of Abnormality of heart valve Amenorrhea Migraines Family History Maternal Grandmother Heart disease Father Hypertension Other Alcohol abuse Social History (Updated 08/30/19 @ 09:02 by Sharmin Lewis) Smoking/Tobacco Use Status: Former Tobacco Use Quit Date: 04/04/15 Tobacco: How many years used: 1 Smoking risk assessment performed?: Yes Alcohol Intake: former Drug use: Never Substance use type: does not use Adopted: No Caregiver/Support person: No Foster care: No Household members: spouse Housing: house Do you need help understanding health information?: Rarely 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[employer] Sexually active: Yes Do you think of yourself as: straight/heterosexual Current gender identity: female Do you feel safe at home: Yes Do you feel safe in your relationship?: Yes Female Reproductive History Menstrual control method: pills History History 2 Para 0 Hx # Term Pregnancies 0 Multiple births 0 Hx # Pregnancies 0 Ectopic pregnancies 0 AB induced 1 Hx Number of Living Children 0 AB spontaneous 0 DS: Data Vitals/I&O Vitals and I&O: Vital Signs Temperature 98.1 F 03/15/20 20:26 Pulse 84 03/16/20 00:16 Pulse Rhythm Regular 03/15/20 20:26 Respiratory Rate 16 03/16/20 00:16 Respiratory Effort 03/15/20 01:23 Respiratory Depth Normal 03/15/20 01:23 Respiratory Pattern Normal 03/15/20 01:23 Blood Pressure 106/51 L 03/16/20 00:16 Blood Pressure Mean 69 03/16/20 00:16 Pulse Oximetry 99 03/15/20 20:26 Oxygen Delivery Method Room Air 03/15/20 08:00 Oxygen Flow Rate 0 03/15/20 08:00 Pain Level 3 03/16/20 06:55 Intake & Output 12/03/2303/15/20 03/16/20 11:59 23:59 11:59 Intake Total 1674 / 1674 Output Total 3100 / 3100 Balance -1426 / -1426 Intake: IV 924 / 924 Oral 750 / 750 Output: Urine 3100 / 3100 Other: Urine Color Yellow Pale Urine Appearance Clear Urine Odor None Voiding Methods Indwelling Catheter
--- NOTE | 2020-03-17 14:23 | ROE_ITS ---
Date of service: 03/14/20 Time of Service: 14:29 Operative Note Operative Note DATE OF PROCEDURE: 03/14/20 PRE-OP DIAGNOSIS: IUP 41w EGA. Arrest of descent. POST-OP DIAGNOSIS: same PROCEDURE: Primary Low Transverse Delivery SURGEON: Mell Miller RECREATION WORKER: Tae Perez ANESTHESIA: epidural ESTIMATED BLOOD LOSS: 600 PATHOLOGY: other (cord bloods to lab) COMPLICATIONS: None Patient was transported to: floor Patient's condition: stable Indications: 29yo female currently 40weeks 6days EGA with who presented with SROM on 07/12/19. Pt was managed expectantly and with minimal cervical change. She eventually required Oxytocin augmentation of labor and epidural for labor analgesia. Despite regular contractions and acheiving complete cervical dilation. Cephalic presenting part only descended to 2+station. Persistent OP. Findings: Viable male who will be named Angel Carrington in direct OP position. Mec stained amniotic fluid. Nuchal cord across chest. Apgars 9/9. Wt 8lb 0.5oz. Nl placenta,adnexa and pelvis Procedure Description: Patient was taken to the operating room where she was placed in the dorsal supine position and her previously placed epidural was redosed. A Bae catheter had already been placed to gravity drainage. SCDs were in place. She received 2 g of Ancef IV prior to skin incision followed by 500mg of IV Azithromycin. A vaginal prep was performed with Betadine and her abdomen was then preped and draped in the usual fashion. After an adequate level of anesthesia was obtained and timeout performed a scalpel was used to incise the skin in a transverse fashion 2cm superior to the symphysis pubis. The underlying subcutaneous tissue was dissected with Bovie electrocautery to the level of the rectus fascia. The rectus fascia was incised and the incision was extended laterally with curved Medina scissors. Grayson clamps were applied to the superior aspect of the rectus fascia and the rectus fascia was dissected off of the underlying rectus muscles with combination of blunt technique and Bovie electrocautery. A similar technique was carried out on the inferior aspect of the same incision. Rectus muscles were in the midline and the peritoneum was entered bluntly and the incision was extended laterally using blunt technique. An Yvan retractor was then placed into the abdomen and secured in place. The vesicouterine peritoneum over the lower uterine segment was incised and the incision extended laterally with the bladder flap created digitally. Scalpel was used to incise the lower uterine segment in transverse fashion and upon entry into the uterine cavity the uterine incision was extended laterally The intact amniotic sac was then ruptured with light meconium stained fluid noted. A single gloved hand was placed into the uterus and the infant's head was delivered atraumatically followed by trunk and extremities. The cord was doubly clamped and cut and the infant handed off to waiting pediatric team. The placenta was delivered intact with a combination of gentle cord traction and fundal massage. Cord blood was collected. The uterus was not exteriorized. The uterine cavity was cleared of clots and debris using a laparotomy sponge. Inspection of the L lateral margin of the uterine incsion was noted to have extended caudally 2m. It was reapproximated with a series of interupted sutures of 0-Vicryl. The uterine incision was then reapproximated with a running lock suture of 0 Vicryl followed by a second imbricated suture of 0 Vicryl. The incision was hemostatic at the completion of the procedure. The paracolic gutters were cleared of any clots and debris. 60cc of sterile infant formula was instilled into the bladder via the bae catheter and the bladder and culdesac inspected. There was no spillage of formula from the bladder or culdesac. The bladder was then returned to gravity drainage. The visceral peritoneum was reapproximated with a running suture of 2-0 Vicryl followed by closure of the rectus fascia with a single layer of 0 Vicryl. The subcutaneous tissue was irrigated with normal saline was then reapproximated with a running suture of 2-0 Vicryl. The skin incision was closed with a 4-0 Vicryl suture in a subcuticular fashion. The skin was then sealed with skin glue and the uterus was massaged for any remaining clots and debris. The patient was then transported to recovery in stable condition. All sponge lap needle counts are correct x2.
== END 2020-03-16 11:20 | disposition home or self-care (01) | DRG 787 ==
PROVIDERS: Obstetrics & Gynecology Gynecology; Admitting Provider Advanced Practice Midwife; PCP Advanced Practice Midwife; Visit Provider Advanced Practice Midwife
PROC: 10D00Z1 Extraction of Products of Conception, Low, Open Approach (ICD-10-PCS; CPT 59514; principal; 2020-03-14 12:00)
DX: O42.12 Full-term premature rupture of membranes, onset of labor more than 24 hours following rupture (principal); O63.9 Long labor, unspecified; O62.1 Secondary uterine inertia; Z37.0 Single live birth; O77.0 Labor and delivery complicated by meconium in amniotic fluid; O99.02 Anemia complicating childbirth; D64.9 Anemia, unspecified; Z3A.41 41 weeks gestation of pregnancy
CPT/HCPCS: 59514; 36415; 85027; 86850; 86900; 86901; U0003; 85025; 86880; G0378; J0456; J0690; J1885; J2405; J3010; J3490

== ENCOUNTER 2022-01-16 17:11 | Emergency (ER) | payer OTHER, SELFPAY ==
[2022-01-16 17:19] VITALS: BP 121/83; PULSE 80; RESP 17; TEMP 37.2; O2SAT 96
--- NOTE | 2022-01-16 17:43 | ED.GENADUL_ITS ---
Discharge Plan Disposition Patient Disposition: HOME Condition: Improving Discharge Details Chief Complaint: HeadInjury Clinical Impression: Laceration of scalp Primary Care Provider: None,None ED Provider: Renny Hong Home Meds and New Rx's Prescriptions: No Action (DME) breast pump Device See Rx Instructions .ROUTE .MEDSUPPLY Qty: 1 0RF Rx Instructions: As directed Discharge Instructions Instructions: Care For Your Absorbable Stitches (ED) Additional Instructions: Please follow-up with your primary care physician. Please return to the emergency department for any worsening symptoms. Medical Decision Making 51-year-old female struck in forehead with wooden log, sustained 4.5 cm laceration to frontal scalp hemostatic no foreign body not gaping linear in nature, no loss of conscious. Patient is hemodynamically stable no other signs of trauma. Eating normally ambulatory without assistance. No nausea or vomiting. Likely simple laceration low suspicion for skull fracture or intracranial hemorrhage or concussion. Patient is up-to-date on her tetanus as she received sutures and a tetanus shot approximately 1 year ago. Will apply LET gel, will irrigate and explore wound and likely closed with simple interrupted sutures 18: 33 patient resting company no acute distress. Neurologically intact. 2 times simple interrupted 5-0 Vicryl sutures, surgical glue and Steri-Strips applied. Home care instructions and return precautions given. HPI General Date/Time Provider Initiated Documentation: 01/16/22 17:25 . HPI Narrative: 31-year-old female presents shortly after being struck in the forehead by a log. Her head was tossing split wood into a trailer that she was standing next to. What struck her in the forehead she sustained a large laceration to her scalp, hemostatic with pressure her friends applied a butterfly bandage. No loss of consciousness. No systemic signs of illness or neurologic symptomatology Related Data Home Medications Medication Instructions Recorded Confirmed breast pump #1 ea 02/21/20 03/12/20 Previous Rx's Medication Instructions Recorded breast pump #1 ea 02/21/20 Allergies Allergy/AdvReac Type Severity Reaction Status Date / Time cephalexin AdvReac Nausea Verified 01/16/22 17:23 General Stated Complaint: HeadInjury KATERINA: 4 Review of Systems Narrative: Review of Systems Constitutional: negative Eyes: negative ENT: negative Cardiovascular: negative Respiratory: negative Gastrointestinal: negative : negative Musculoskeletal: negative Skin: Forehead laceration Neurologic: negative Psych: negative PFSH All Active Problems (Updated 01/16/22 @ 18:34 by Renny Hong MD) Laceration of scalp (Acute) Elevated blood pressure affecting in third trimester, antepartum (Acute) Post-dates (Acute) Anemia affecting in third trimester (Acute) PROM with onset of labor more than 24 hours following rupture (Acute) Failure to progress in second stage of labor (Acute) Prolonged labor with first (Acute) delivery delivered (Acute) Abnormality of heart valve (Acute) Migraines (Chronic) Medical History (Updated 01/16/22 @ 18:34 by Renny Hong MD) 15 weeks gestation of 36 weeks gestation of Amenorrhea Family History Maternal Grandmother Heart disease Father Hypertension Other Alcohol abuse Social History (Updated 08/30/19 @ 09:02 by Sharmin Lewis) Smoking/Tobacco Use Status: Former Tobacco Use Quit Date: 04/04/15 Tobacco: How many years used: 1 Smoking risk assessment performed?: Yes Alcohol Intake: current Alcohol Intake frequency: a few times a month Drug use: Never Substance use type: does not use Adopted: No Caregiver/Support person: No Foster care: No Household members: spouse Housing: house Do you need help understanding health information?: Rarely current occupation: [employer] Sexually active: Yes Do you think of yourself as: straight/heterosexual Current gender identity: female Do you feel safe at home: Yes Do you feel safe in your relationship?: Yes Female Reproductive History Menstrual control method: pills History History 2 Para 1 Hx # Term Pregnancies 1 Multiple births 0 Hx # Pregnancies 0 Ectopic pregnancies 0 AB induced 1 Hx Number of Living Children 1 AB spontaneous 0 Past Pregnancies Del. Date GA/Weeks # Preg Succ Route Wgt Sex Labor Lgth Anesth esia Location [facility] 03/14/20 40 No 3642.914 g Male regional MD Kirill; Vesna Perez CNM Delivery Date: 03/14/20 Last Updated by: Viridiana Vital LPN for arrest of descent; Angel Gardner Exam Narrative Exam Narrative: Physical Examination General: alert, awake, cooperative, resting comfortably, no acute distress HEENT: normocephalic, 4.5 cm laceration non gaping to frontal scalp; PERRL, EOM intact, conjunctiva normal; no nasal discharge; moist mucous membranes, oral and pharyngeal mucosa normal, tolerating secretions Neck: supple, trachea midline; full ROM Chest: normal to inspection Respiratory: normal respiratory effort, speaking in full sentences, clear to auscultation, no wheezing, rales or rhonchi Cardiac: regular rate, regular rhythm, S1S2 intact, no murmurs rubs or gallops GI: abdomen soft, non-tender, non-distended; no palpable mass or hepatosplenomegaly Skin: 4.5 cm not gaping laceration to frontal scalp hemostatic no foreign body Neuro: AAOx3, normal speech, moving all extremities Psych: Appropriate mood and affect Course Vital Signs Vital signs: Vital Signs Temperature 37.2 C 01/16/22 17:19 Pulse 80 01/16/22 17:19 Respiratory Rate 17 01/16/22 17:19 Blood Pressure 121/83 01/16/22 17:19 Pulse Oximetry 96 01/16/22 17:19 Temperature 37.2 C 01/16/22 17:19 Temperature Source Tympanic 01/16/22 17:19 Pulse 80 01/16/22 17:19 Respiratory Rate 17 01/16/22 17:19 Respiratory Effort Non-Labored 01/16/22 17:24 Respiratory Depth Normal 01/16/22 17:24 Respiratory Pattern Normal 01/16/22 17:24 Blood Pressure 121/83 01/16/22 17:19 Blood Pressure Position Sitting 01/16/22 17:19 Pulse Oximetry 96 01/16/22 17:19 Oxygen Delivery Method Room Air 01/16/22 17:19 Oxygen Flow Rate 0 01/16/22 17:19 Pain Level 0 01/16/22 17:24 Procedures Laceration Laceration 1: Site: scalp Size (cm): 4.5 Description: linear Depth: simple, single layer Local Anesthetic: other anesthetic (LEt gel) Pre-repair: wound explored and irrigated extensively Skin layer closed with: vicryl Size (cm): 5-0 Number of sutures: 2 Technique: simple, interrupted PAWSS Have you Been Recently Intoxicated or Drunk Within the Last 30 days?: No Have you Ever Experienced Previous Episodes of Alcohol Withdrawal?: No Have you ever Experienced Withdrawal Seizures?: No Have you ever Experienced Delirium Tremens(DT)s?: No Have you ever undergone Alcohol Rehabilitation Treatment (i.e, inpt ot outpati ent treatment programs)?: No Have you ever Experienced Blackouts?: No Have you ever Combined Alcohol with other Downers within the last 90 days?: No Have you ever Combined Alcohol with any other Substance of Abuse during the last 90 days?: No Result: 0
[2022-01-16] MEDS: Lidocaine/Epinephri/Tetracaine Topical Gel 3 ML TP (17:52)
== END 2022-01-16 18:39 | disposition home or self-care (01) ==
PROVIDERS: Emergency Provider Emergency Medicine
DX: S01.01XA Laceration without foreign body of scalp, initial encounter (principal); W22.8XXA Striking against or struck by other objects, initial encounter
CPT/HCPCS: 12002; 99281; 99282